=== PATIENT | male | born 1995 | race African-American/Black ===

== ENCOUNTER 2020-07-27 11:54 | Emergency (ER) | payer SELFPAY ==
[~2020-07-27] VITALS: Ht 185.4 cm; Wt 86.9 kg
--- NOTE | 2020-07-27 12:23 | NUR ---
NO ANSWER TO TRIAGE.
--- NOTE | 2020-07-27 12:54 | NUR ---
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
[2020-07-27 13:20] VITALS: BP 124/74
== END 2020-07-27 13:21 | disposition home or self-care (01) ==
LOC: ED 13:10
DX: S43.005A Unspecified dislocation of left shoulder joint, initial encounter (principal); X58.XXXA Exposure to other specified factors, initial encounter; Y93.89 Activity, other specified; Y92.89 Other specified places as the place of occurrence of the external cause; Y99.8 Other external cause status
CPT/HCPCS: 99283